=== PATIENT | female | born 1950 | race Caucasian/White ===

== ENCOUNTER 2024-10-21 13:09 | Emergency (ER) | payer OTHER ==
[2024-10-21 13:23] VITALS: BP 115/66; PULSE 93; RESP 20; TEMP 98.6; BMI 29.2
[2024-10-21] MEDS ORDERED: LIDOCAINE 4% PATCH TP ONE (14:04)
[2024-10-21] MEDS ORDERED: ACETAMINOPHEN 325 MG TABLET (FP) ONE (14:04)
[2024-10-21] MEDS: ACETAMINOPHEN 325 MG TABLET (FP) PO ONE (14:10)
[2024-10-21] MEDS: LIDOCAINE 4% PATCH TP ONE (14:11)
[2024-10-21] MEDS ORDERED: METHOCARBAMOL 500 MG TABLET ONE (14:20)
[2024-10-21] MEDS: METHOCARBAMOL 500 MG TABLET PO ONE (14:43)
[2024-10-21 14:52] LABS: HEMATOCRIT 42.8 % (32.4-45.2); HEMOGLOBIN 14.3 GM/dL (10.7-15.3); MCH 28.1 pg (25.7-33.7); MCHC 33.3 g/dl (32.0-36.0); MEAN CELL VOLUME 84.3 fl (80-96); MEAN PLT VOLUME 9.5 fl (7.5-11.1); PLATELET COUNT 162 10^3/uL (134-434); RBC 5.08 M/mm3 (3.60-5.2); RDW 15.3 % (11.6-15.6); WHITE BLOOD COUNT 10.9 K/mm3 (4.0-10.0)
[2024-10-21 15:16] LABS: ANISOCYTOSIS 0; MACROCYTOSIS 0
[2024-10-21 15:17] LABS: POTASSIUM 4.8 mmol/L (3.5-5.1)
[2024-10-21 15:18] LABS: CALCIUM 8.9 mg/dL (8.5-10.1)
[2024-10-21 15:19] LABS: ALBUMIN 3.1 g/dl (3.4-5.0); BLOOD UREA NITROGEN 21.7 mg/dL (7-18)
[2024-10-21 15:22] LABS: CREATININE 0.9 mg/dL (0.55-1.3)
[2024-10-21 15:24] LABS: BILIRUBIN,TOTAL 1.2 mg/dL (0.2-1); TOT PROT 6.9 g/dl (6.4-8.2)
[2024-10-21] MEDS ORDERED: CEFTRIAXONE 1 G/50 ML PREMIX 50 ML IVPB ONE (16:09)
[2024-10-21] MEDS: CEFTRIAXONE 1 GM in DEXTROSE 5%-WATER - 100 ML IVPB ONE (16:19)
[2024-10-21] MEDS: SODIUM CHLORIDE 0.9% 1000 ML INFUS.BAG IV ONE (16:19)
== END 2024-10-21 18:36 | disposition home or self-care (01) ==
LOC: JER 13:09
DX: M62.838 Other muscle spasm (principal); M54.2 Cervicalgia; M54.6 Pain in thoracic spine; R07.2 Precordial pain; W01.198A Fall on same level from slipping, tripping and stumbling with subsequent striking against other object, initial encounter
CPT/HCPCS: 36415; 71250-TC; 72125-TC; 73030-TC-RT-FY; 73060-TC-RT-FY; 80053; 85025; 96365; 99285-25